=== PATIENT | female | born 1960 | race Caucasian/White ===

== ENCOUNTER → 2017-07-11 | Outpatient (CLI) | payer OTHER ==
[2017-05-24 09:12] VITALS: BMI 29.8
[~2017-07-11] MED LIST: AMOX1TAB9 PO; CHOL100062 PO; HYDR-385 PO; IBU600 PO; IBUP800T37 PO; KET10 PO; LACT1CAP9 PO; LEVE500T73 PO; LOR5 PO; LOR5/325 PO; MULT-1335 PO; NO MEDS; OMEP-218 PO; ONDA4TAB9 PO; PRO25 PO; SERT-1 PO; SERT-173 PO; TAMS0.4C70 PO; VITA1CAP46 PO
== END ==
LOC: AMB 17:40
PROVIDERS: ATTEND Nurse Practitioner
DX: M25.511 Pain in right shoulder (principal); R22.31 Localized swelling, mass and lump, right upper limb; W01.0XXA Fall on same level from slipping, tripping and stumbling without subsequent striking against object, initial encounter
CPT/HCPCS: A0425; A0427

== ENCOUNTER → 2018-07-11 | Outpatient (CLI) | payer OTHER ==
[2017-05-24 09:12] VITALS: BMI 29.8
--- NOTE | 2018-07-11 15:18 | RADIOLOGY IMAGING REPORT ---
FACILITY: [facility] - [place] PATIENT NAME: SEYMOUR PULIDO : [id number] MR: [id number] V: [id number] EXAM DATE: ORDERING PHYSICIAN: BRETT RIVERA TECHNOLOGIST: Cecy Mistry PROCEDURE:BILATERAL DIGITAL SCREENING MAMMOGRAM WITH CAD ASSISTED INTERPRETATION & 3D TOMOSYNTHESIS COMPARISON:Prior mammograms 06/08/17, 05/08/17, 08/06/13. INDICATIONS:SCREENING FINDINGS: Scattered fibroglandular densities are seen throughout both breasts. The parenchymal pattern has remained stable allowing for difference in mammographic technique & patient positioning. DIAGNOSTIC CATEGORY 1--NEGATIVE. RECOMMENDATIONS: ROUTINE MAMMOGRAM AND CLINICAL EVALUATION. IMPRESSION: BIRADS 1: Negative. No significant abnormality is seen. Dictated by: Renata Fisher M.D. on 07/11/2018 at 11:44 Transcribed by: STEPHANIE on 07/11/2018 at 11:53 Approved by: Renata Fisher M.D. on 07/11/2018 at 15:17 [facility]
== END ==
LOC: MAMO 01:28
PROVIDERS: ATTEND Nurse Practitioner Psychiatric/Mental Health
DX: Z12.31 Encounter for screening mammogram for malignant neoplasm of breast (principal); Z80.3 Family history of malignant neoplasm of breast
CPT/HCPCS: 77063; 77067